=== PATIENT | male | born 1970 | race Caucasian/White ===

== ENCOUNTER 2019-02-07 13:23 | Emergency (ER) | payer OTHER ==
[2019-02-07 13:42] VITALS: BP 135/90; PULSE 79; TEMP 98; BMI 20.1
--- NOTE | 2019-02-07 13:42 | PDOC ---
Rapid Medical Evaluation Chief Complaint: Hematuria Time Seen by Provider: 02/07/19 13:39 Medical Evaluation: Allergies Allergy/AdvReac Type Severity Reaction Status Date / Time Penicillins Allergy Intermediate Verified 06/11/11 08:12 02/07/19 13:39 I have performed a brief in-person evaluation of this patient. The patient presents with a chief complaint of:hematuria Pertinent physical exam findings: onset this afternoon, + HX of Kidney Stone 3 years ago I have ordered the following: UA, Ucx The patient will proceed to the ED for further evaluation. 02/07/19 13:40 Discharge Disposition - Diagnosis Hematuria - Referrals - Patient Instructions - Post Discharge Activity
[2019-02-07 14:34] LABS: HYALINE CASTS 5 /lpf (0-8); URINE APPEARANCE CLEAR; URINE BACTERIA 0.2 /hpf (NEGATIVE); URINE BILIRUBIN 1+ (NEGATIVE); URINE COLOR RED; URINE GLUCOSE (UA) NEGATIVE (NEGATIVE); URINE KETONE NEGATIVE (NEGATIVE); URINE LEUK ESTERASE 1+ (NEGATIVE); URINE NITRITE POSITIVE (NEGATIVE); URINE PROTEIN 2+ (NEGATIVE); URINE RBC 5406 /hpf (0-4); URINE UROBILINOGEN 0.2 mg/dL (0.2-1.0); URINE WBC 14 /hpf (0-5)
--- NOTE | 2019-02-07 14:44 | PDOC ---
History of Present Illness - General Chief Complaint: Hematuria Stated Complaint: BLOOD IN THE URINE Time Seen by Provider: 02/07/19 13:39 History Source: Patient Exam Limitations: Clinical Condition - History of Present Illness Initial Comments: 02/07/19 14:41 Patient with no significant past medical history and half pack a day smoker presented with complaint of blood-tinged urine since this afternoon. Patient reported history of kidney stone and thinks symptom hardy likely be due to a passed kidney stone. Patient reported no pain before or after hematuria. Denies urinary frequency, dysuria, back pains, nausea or vomiting. Denies any other symptoms Is this a multiple visit Asthma Patient?: No Timing/Duration: 4-6 hours Past History - Past Medical History Allergies/Adverse Reactions: Allergies Allergy/AdvReac Type Severity Reaction Status Date / Time Penicillins Allergy Intermediate Verified 02/07/19 13:42 Home Medications: Ambulatory Orders Ciprofloxacin [Cipro (Restricted To Id)] 500 mg PO Q12H 7 Days #14 tablet COPD: No HTN: Yes - Psycho Social/Smoking Cessation Hx Smoking Status: Yes Smoking History: Current every day smoker Years of Tobacco Use: 18 Number of Cigarettes Smoked Daily: 10 Information on smoking cessation initiated: No Hx Alcohol Use: No Drug/Substance Use Hx: No Review of Systems - Review of Systems Able to Perform ROS?: Yes Is the patient limited Lithuanian proficient: No Constitutional: No: Chills, Fever, Malaise HEENTM: No: Symptoms Reported Respiratory: No: Symptoms reported Cardiac (ROS): No: Symptoms Reported ABD/GI: No: Symptoms Reported, Nausea, Vomiting : Yes: Symptoms Reported, See HPI, Hematuria. No: Burning, Dysuria, Discharge , Frequency, Flank Pain, Incontinence, Pain, Urgency, Testicular Mass, Testicular Swelling, Lesions, Testicular Pain Musculoskeletal: No: Symptoms Reported, Back Pain All Other Systems: Reviewed and Negative *Physical Exam - Vital Signs Last Vital Signs Temp Pulse Resp BP Pulse Ox 98.0 F 79 14 135/90 99 02/07/19 13:38 02/07/19 13:38 02/07/19 13:38 02/07/19 13:38 02/07/19 13:38 - Physical Exam General Appearance: Yes: Nourished, Appropriately Dressed. No: Apparent Distress HEENT: positive: Normal ENT Inspection Neck: positive: Supple Respiratory/Chest: positive: Lungs Clear, Normal Breath Sounds. negative: Respiratory Distress, Accessory Muscle Use Cardiovascular: positive: Regular Rhythm, Regular Rate Gastrointestinal/Abdominal: positive: Normal Bowel Sounds, Flat, Soft. negative : Tender, Organomegaly, Pulsatile Mass Male Genitalia: positive: normal genitalia Musculoskeletal: positive: Normal Inspection. negative: CVA Tenderness Extremity: positive: Normal Inspection Integumentary: positive: Normal Color Neurologic: positive: Fully Oriented, Alert, Normal Mood/Affect, Normal Response ED Treatment Course - ADDITIONAL ORDERS Additional order review: Laboratory Results 02/07/19 14:20 Urine Color Red Urine Appearance Clear Urine pH 8.0 Ur Specific [place] 1.025 Urine Protein 2+ H Urine Glucose (UA) Negative Urine Ketones Negative Urine Blood 3+ H Urine Nitrite Positive H Urine Bilirubin 1+ H Urine Urobilinogen 0.2 Ur Leukocyte Esterase 1+ H Urine WBC (Auto) 14 Urine RBC (Auto) 5406 Urine Casts (Auto) 5 U Epithel Cells (Auto) 1.0 Urine Bacteria (Auto) 0.2 - RADIOLOGY Radiology Studies Ordered: Category Date Time Status SPIRAL- RENAL-STONE CT [CT] Stat CT Scan 02/07/19 14:35 Ordered Medical Decision Making - Medical Decision Making 02/07/19 14:42 Patient with no significant past medical history and half pack a day smoker presented with complaint of blood-tinged urine since this afternoon. Patient reported history of kidney stone and thinks symptom hardy likely be due to a passed kidney stone. Patient reported no pain before or after hematuria. Denies urinary frequency, dysuria, back pains, nausea or vomiting. Denies any other symptoms Clinical exam unremarkable with no abdominal tenderness and no CVA tenderness. Patient symptoms likely acute cystitis versus renal stone versus bladder cancer. UA and urine culture lab ordered. Spiral CT ordered to evaluate for renal pathology 02/07/19 16:50 UA shows leukocytosis with positive nitrites and ketones with hematuria. Spiral CT shows small 0.3 cm nonobstructing renal stone on the left otherwise normal exam. Patient symptoms likely caused by cystitis with renal stone. Patient stable for outpatient management on Cipro antibiotics for a week with urology follow-up Discharge - Discharge Information Problems reviewed: Yes Clinical Impression/Diagnosis: Acute cystitis with hematuria, Renal calculi Condition: Stable Disposition: HOME - Admission No - Additional Discharge Information Prescriptions: Ciprofloxacin [Cipro (Restricted To Id)] 500 mg PO Q12H 7 Days #14 tablet - Follow up/Referral Referrals: Kiko Ly MD [Staff Physician] - - Patient Discharge Instructions Patient Printed Discharge Instructions: DI for Kidney Stones, DI for Hematuria Additional Instructions: Your CAT scan shows tiny nonobstructing 0.3 cm renal stone. Urine lab data shows bacteria in the urine which can also contribute to blood in urine. Take prescribed medication as prescribed. Increase fluid intake and void frequently. Follow-up referred urologist or your urologist in the [place] as discussed - Post Discharge Activity
== END 2019-02-07 16:55 | disposition home or self-care (01) ==
LOC: JERFT 13:23
DX: N30.01 Acute cystitis with hematuria (principal); N20.0 Calculus of kidney; Z87.442 Personal history of urinary calculi; I10 Essential (primary) hypertension; F17.210 Nicotine dependence, cigarettes, uncomplicated; Z88.0 Allergy status to penicillin; Z88.1 Allergy status to other antibiotic agents
CPT/HCPCS: 74176-TC; 81003; 87086; 87186; 99281-25

== ENCOUNTER 2019-02-07 19:53 | Inpatient (IN) | payer OTHER ==
[2019-02-07] MEDS ORDERED: KETOROLAC TROMETHAMINE 60 MG/2 ML VIAL IM ONE (20:11)
--- NOTE | 2019-02-07 20:12 | PDOC ---
Rapid Medical Evaluation Chief Complaint: Pain Time Seen by Provider: 02/07/19 20:07 Medical Evaluation: Allergies Allergy/AdvReac Type Severity Reaction Status Date / Time Penicillins Allergy Intermediate Verified 02/07/19 16:54 02/07/19 20:08 I have performed a brief in-person evaluation of this patient. The patient presents with a chief complaint of:was discharged ~ 2 hours ago with Dx Kidney stone., passed kidney stone ~ 1 hour ago, and unable to get pain medications. here with severe flank pain and Nausea Pertinent physical exam findings: patient in wheelchair/ groaning/ diaphoretic I have ordered the following: UA The patient will proceed to the ED for further evaluation. 02/07/19 20:10 Discharge Disposition - Diagnosis Kidney stone on right side - Discharge Dispostion Condition at time of disposition: Stable - Referrals - Patient Instructions - Post Discharge Activity
[2019-02-07 20:14] VITALS: BMI 21.8
[2019-02-07] MEDS ORDERED: KETOROLAC TROMETHAMINE 60 MG/2 ML VIAL ONE (20:19)
[2019-02-07 23:18] LABS: BASO % 0.4 % (0-2.0); EOS % 0.6 % (0-4.5); HEMATOCRIT 44.2 % (35.4-49); HEMOGLOBIN 14.4 GM/dL (11.7-16.9); LYMPH % 12.5 % (8-40); MCH 30.8 pg (25.7-33.7); MCHC 32.6 g/dl (32.0-35.9); MEAN CELL VOLUME 94.5 fl (80-96); MONO % 4.1 % (3.8-10.2); NEUT % 82.4 % (42.8-82.8); PLATELET COUNT 292 K/MM3 (134-434); RBC 4.68 M/mm3 (4.00-5.60); RDW 13.5 % (11.9-15.9); WHITE BLOOD COUNT 12.8 K/mm3 (4.0-10.0)
--- NOTE | 2019-02-07 23:30 | PDOC ---
History of Present Illness - General Chief Complaint: Pain Stated Complaint: ABD PAIN Time Seen by Provider: 02/07/19 20:07 History Source: Patient Exam Limitations: No Limitations - History of Present Illness Initial Comments: 02/07/19 23:17 48M with a PMH from HTN who presents to the ER with L flank pain. The patient was seen in our ER earlier today and was diagnosed with a renal pelvis stone and possible UTI and sent home with antibiotics. He states that at 1800 his pain came back and he couldn't tolerate it. He denies taking ibuprofen or tylenol for the pain. He states that his urine is less bloody now. Denies dysuria, discharge, or testicular pain. Past History - Past Medical History Allergies/Adverse Reactions: Allergies Allergy/AdvReac Type Severity Reaction Status Date / Time Penicillins Allergy Intermediate Verified 02/07/19 16:54 gatifloxacin [From Tequin] Allergy Verified 02/07/19 20:09 Home Medications: Ambulatory Orders Ciprofloxacin [Cipro (Restricted To Id)] 500 mg PO Q12H 7 Days #14 tablet COPD: No HTN: Yes - Psycho Social/Smoking Cessation Hx Smoking Status: Yes Smoking History: Current every day smoker Years of Tobacco Use: 18 Number of Cigarettes Smoked Daily: 10 Information on smoking cessation initiated: No Hx Alcohol Use: No Drug/Substance Use Hx: No Review of Systems - Review of Systems Able to Perform ROS?: Yes Comments:: 02/07/19 23:52 GENERAL/CONSTITUTIONAL: No fever or chills. No weakness. HEAD, EYES, EARS, NOSE AND THROAT: No change in vision. No ear pain or discharge. No sore throat. CARDIOVASCULAR: No chest pain, palpitations, or lightheadedness. RESPIRATORY: No cough, wheezing, shortness of breath, or hemoptysis. GASTROINTESTINAL: No abdominal pain, nausea, vomiting, diarrhea, or constipation. GENITOURINARY: + for hematuria and flank pain. No dysuria, frequency, or change in urination. MUSCULOSKELETAL: No joint or muscle swelling or pain. No neck or back pain. SKIN: No rash or lesions. NEUROLOGIC: No headache, numbness, tingling, focal weakness, loss of consciousness, or change in strength/sensation. Is the patient limited Wolof proficient: No *Physical Exam - Vital Signs Last Vital Signs Temp Pulse Resp BP Pulse Ox 98 F 71 20 138/76 100 02/07/19 20:09 02/07/19 20:09 02/07/19 20:09 02/07/19 20:09 02/07/19 20:09 - Physical Exam Comments: 02/07/19 23:52 GENERAL: Well developed, well nourished. Awake and alert. No acute distress. HEENT: Normocephalic, atraumatic. Hearing grossly normal. Moist mucous membranes. PERRLA, EOMI. No conjunctival pallor. Sclera are non-icteric. NECK: Supple. Full ROM. No JVD. CARDIOVASCULAR: Regular rate and rhythm. No murmurs, rubs, or gallops. PULMONARY: No evidence of respiratory distress. Lungs clear to auscultation bilaterally. No wheezing, rales or rhonchi. ABDOMINAL: Soft. Non-tender. Non-distended. No rebound or guarding. GENITOURINARY: No CVA tenderness bilaterally. MUSCULOSKELETAL: Normal range of motion at all joints. No bony deformities or tenderness. EXTREMITIES: No cyanosis. No clubbing. No edema. No calf tenderness or swelling. SKIN: Warm and dry. Normal capillary refill. No rashes. No jaundice. NEUROLOGICAL: Alert, awake, appropriate. Cranial nerves 2-12 intact. Normal speech. Gait is normal without ataxia. PSYCHIATRIC: Cooperative. Good eye contact. Appropriate mood and affect. ED Treatment Course - LABORATORY CBC & Chemistry Diagram: 02/07/19 23:00 02/07/19 23:00 - Medications Given in the ED: ED Medications Discontinued Medications Generic Name Dose Route Start Last Admin Trade Name Alfonsoq PRN Reason Stop Dose Admin Ketorolac Tromethamine 60 mg 02/07/19 20:11 02/07/19 20:21 Toradol Injection - IM 02/07/19 20:12 60 mg ONCE ONE Administration Medical Decision Making - Medical Decision Making 02/08/19 00:27 48M recently diagnosed with nephrolithiasis and UTI (nitrite +, 1+ LE, w/ few bacteria however). Will admit for concern of septic stone. Giving IV abx. Discharge - Discharge Information Problems reviewed: Yes Clinical Impression/Diagnosis: Kidney stone on right side Condition: Guarded - Admission Yes - Follow up/Referral - Patient Discharge Instructions - Post Discharge Activity
[2019-02-07 23:51] LABS: ALBUMIN 4.1 g/dl (3.4-5.0); BILIRUBIN,TOTAL 0.8 mg/dL (0.2-1); BLOOD UREA NITROGEN 21.5 mg/dL (7-18); CREATININE 1.3 mg/dL (0.55-1.3); POTASSIUM 4.4 mmol/L (3.5-5.1); TOT PROT 7.3 g/dl (6.4-8.2)
--- NOTE | 2019-02-07 23:53 | PDOC ---
Attending Attestation - Resident Resident Name: Allan Schroeder - ED Attending Attestation I have performed the following: I have examined & evaluated the patient, The case was reviewed & discussed with the resident, I agree w/resident's findings & plan - HPI HPI: 02/07/19 23:52 see resident hpi - Physicial Exam PE: 02/07/19 23:52 agree with resident exam - Medical Decision Making 02/07/19 23:52 48-year-old male seen earlier today with diagnosed intrarenal stone and possible UTI now with increasing pain Patient does have a leukocytosis In light of persistent pain, stone on CT scan and pending urine culture he will be admitted to medical service for further management
[2019-02-08] MEDS ORDERED: CEFTRIAXONE 1,000 MG in DEXTROSE 5%-WATER - 50 ML IVPB ONE (00:32)
[2019-02-08] MEDS ORDERED: CEFTRIAXONE 1 GM/50 ML BAG ONE (00:35)
--- NOTE | 2019-02-08 01:35 | PN ---
Teaching Attending Note Name of Resident: Justin Harrell ATTENDING PHYSICIAN STATEMENT I saw and evaluated the patient. I reviewed the resident's note and discussed the case with the resident. I agree with the resident's findings and plan as documented. SUBJECTIVE: Patient is a 48 year old man with PMH of Penicillin allergy, Kidney stone, Tobacco use and HTN who presents to the ER with left flank pain. The patient was seen in our ER earlier today for hematuria and was diagnosed with a renal pelvis stone and possible UTI and sent home with antibiotics (Cipro). He states that at 1800 his pain came back and he couldn't tolerate it. He denies taking ibuprofen or tylenol for the pain. He states that his urine is less bloody now. Takes self-prescribed Flintstones vitamins. Denies dysuria, penile discharge, or testicular pain. Denies urinary frequency, dysuria, back pains, nausea or vomiting. No alcohol or illicit drug use. No recent travel or sick contacts. FH of HTN in parents. OBJECTIVE: Alert Vital Signs Period Temp Pulse Resp BP Sys/[place] Pulse Ox Last 24 Hr 97.9 F-98 F 67-71 15-20 113-138/64-76 97-100 HEENT: No Jaundice, eye redness or discharge, PERRLA, EOMI. Normocephalic, atraumatic. External ears are normal and hearing is grossly intact. No nasal discharge. Neck: Supple, nontender. No palpable adenopathy or thyromegaly. No JVD Chest: Good effort. Clear to auscultation and percussion. Heart: Regular. No S3, rub or murmur Abdomen: Not distended, soft, nontender and no HSM. No rebound or guarding. Normal bowel sounds. Ext: Peripheral pulses intact. No leg edema. Skin: Warm and dry. No petechiae, rash or ecchymosis. Neuro: Alert. Oriented x3. CN 2-12 grossly intact. Sensation grossly intact in all four extremities and DTR are symmetric. Psych: Appropriate mood and affect. Good insight. Home Medications Medication Instructions Recorded Ciprofloxacin [Cipro (Restricted 500 mg PO Q12H 7 Days #14 tablet 02/07/19 To Id)] Fexofenadine HCl [Richa Allergy] 60 mg PO DAILY 02/08/19 Metoprolol Succinate [Toprol Xl] 25 mg PO DAILY 02/08/19 Abnormal Lab Results 02/07/19 02/07/19 23:00 23:00 WBC 12.8 H Absolute Neuts (auto) 10.5 H Anion Gap 5 L BUN 21.5 H Random Glucose 113 H ASSESSMENT AND PLAN: 1. Kidney stone with UTI - Earlier today, spiral CT showed small 0.3 cm nonobstructing renal stone in the left renal pelvis with minimal to mild hydronephrosis. Also urinalysis done earlier today showed hematuria and evidence of UTI. Will treat with IV Cipro pending urine culture, IV NS, Flomax, strain urine and consult Urology. Use tylenol for pain control. EKG shows NSR with no significant ST-T wave changes. Will need outpatient workup to search for stone disease risk factor. Counseled to stop taking Flintstones vitamins. Get HbA1c. Will continue comprehensive care for all of patients comorbid conditions. 2. Hypertension - Restart suitable outpatient antihypertensive drugs when clinically appropriate. Revise regimen to ensure [id number] excellent BP control and community health counselor patient on the injurious effects of uncontrolled hypertension. Nonpharmacologic measures to control hypertension like weight loss , salt restriction and exercise discussed. Importance of adherence to treatment regimen and attainment of normotension emphasized. 3. DVT prophylaxis - SCD 4. Advance directives - Full code
--- NOTE | 2019-02-08 01:45 | HP ---
CHIEF COMPLAINT: abdominal pain PCP: Joni Murray HISTORY OF PRESENT ILLNESS: 48 y/o male PMH HTN and nephrolithiasis c/o abdominal pain. Pain is located in the LLQ, started in the afternoon, pressure character, radiates to the groin, associated symptom of hematuria, and was 8/10. Hematuria initially presented as tea colored urine and reduced in severity over time. Pt's 1st experience with nephrolithiasis was in 2004 and he reports feeling similar symptoms. He came to the ED on the afternoon of 07 Feb 2019, found to have 4x2mm stone in LEFT renal pelvis with min/mild hydronephrosis on CT, and he was d/c on ciprofloxacin 500 mg PO BID, which he did not start. He returned to the ED with abovementioned pain. He was given ketorolac in the ED, which relived his pain. He denies passing the stone in between visits. Pt reports poor diet: low fiber diet, no fruits/veg, sodas/juices often. He also states he consumes PhysicianPortal vitamins, which contains 160 mg Ca. He denies hematuria outside of kidney stone episodes. He is an active smoker. He denies night sweats, fever, chills, and weight loss. He denies NVFD, chills, constipation. He denies sick contacts and recent illness. HTN dx in 2009. He does not mesause his BP at home. He takes metoprolol 25 mg PO QD in the AM. He denies SOB, CP, joint pain, TURK, and vision changes. Recent Travel: [place] September 2018 Family history: Mother and father - HTN PAST MEDICAL HISTORY: HTN, nephrolithiasis PAST SURGICAL HISTORY: Denies Social History: Smoking: Active smoker for 28 years, 1/2 ppd. In contemplative state for cessation. Alcohol: Denies Drugs: Denies Works as a school bus aide. Lives at home with mother and brother. Allergies: Penicillins Allergy (Intermediate, Verified 02/07/19 16:54): swelling , lethargy HOME MEDICATIONS: Medication Instructions Recorded Ciprofloxacin [Cipro (Restricted 500 mg PO Q12H 7 Days #14 tablet 02/07/19 To Id)] Fexofenadine HCl [Richa Allergy] 60 mg PO DAILY 02/08/19 Metoprolol Succinate [Toprol Xl] 25 mg PO DAILY 02/08/19 REVIEW OF SYSTEMS CONSTITUTIONAL: Absent: fever, chills, diaphoresis, generalized weakness, malaise, loss of appetite, weight change HEENT: Absent: rhinorrhea, nasal congestion, throat pain, throat swelling, difficulty swallowing, mouth swelling, ear pain, eye pain, visual changes CARDIOVASCULAR: Absent: chest pain, syncope, palpitations, irregular heart rate, lightheadedness , peripheral edema RESPIRATORY: Absent: cough, shortness of breath, dyspnea with exertion, orthopnea, wheezing, stridor, hemoptysis GASTROINTESTINAL: Absent: abdominal pain, abdominal distension, nausea, vomiting, diarrhea, constipation, melena, hematochezia GENITOURINARY: Absent: dysuria, frequency, urgency, hesitancy, hematuria, flank pain, genital pain MUSCULOSKELETAL: Absent: myalgia, arthralgia, joint swelling, back pain, neck pain SKIN: Absent: rash, itching, pallor HEMATOLOGIC/IMMUNOLOGIC: Absent: easy bleeding, easy bruising, lymphadenopathy, frequent infections ENDOCRINE: Absent: unexplained weight gain, unexplained weight loss, heat intolerance, cold intolerance NEUROLOGIC: Absent: headache, focal weakness or paresthesias, dizziness, unsteady gait, seizure, mental status changes, bladder or bowel incontinence PSYCHIATRIC: Absent: anxiety, depression, suicidal or homicidal ideation, hallucinations. PHYSICAL EXAMINATION Vital Signs - 24 hr 02/07/19 02/08/19 20:09 00:40 Temperature 98 F 97.9 F Pulse Rate 71 Pulse Rate [ 67 Right Radial] Respiratory 20 15 Rate Blood Pressure 138/76 Blood Pressure 113/64 [Left Arm] O2 Sat by Pulse 100 97 Oximetry (%) GENERAL: AOx3, in no acute distress. HEAD: NCAT EYES: IVORY, EOMI, conjunctiva clear. ENT: Ears normal, nares patent, oropharynx clear without exudates. Moist mucous membranes. NECK: Normal range of motion, supple without lymphadenopathy, JVD, or masses. LUNGS: CTAB. LEFT upper lobe wheezes. No accessory muscle use. HEART: RRR s1 s2 ABDOMEN: Soft, BS present in all 4 quadrants, non-distended, no JVD, MUSCULOSKELETAL: No bony deformities or tenderness. No CVA tenderness. UPPER EXTREMITIES: 2+ pulses, warm, well-perfused. No cyanosis. No clubbing. No peripheral edema. LOWER EXTREMITIES: 2+ pulses, warm, well-perfused. No calf tenderness. No peripheral edema. NEUROLOGICAL: No focal deficits. Cranial nerves II-XII intact. Normal speech. Gait not appreciated. PSYCHIATRIC: Cooperative. Good eye contact. Appropriate mood and affect. SKIN: Warm, dry, normal turgor, no rashes or lesions noted, normal capillary refill. Laboratory Results - last 24 hr 02/07/19 02/07/19 23:00 23:00 WBC 12.8 H RBC 4.68 Hgb 14.4 Hct 44.2 MCV 94.5 MCH 30.8 MCHC 32.6 RDW 13.5 Plt Count 292 D MPV 9.0 Absolute Neuts (auto) 10.5 H Neutrophils % 82.4 Lymphocytes % 12.5 D Monocytes % 4.1 Eosinophils % 0.6 Basophils % 0.4 Nucleated RBC % 0 Sodium 138 Potassium 4.4 Chloride 104 Carbon Dioxide 29 Anion Gap 5 L BUN 21.5 H Creatinine 1.3 Est GFR (CKD-EPI)AfAm 75.84 Est GFR (CKD-EPI)NonAf 65.43 Random Glucose 113 H Calcium 10.0 Total Bilirubin 0.8 AST 21 ALT 17 Alkaline Phosphatase 95 Total Protein 7.3 Albumin 4.1 ASSESSMENT/PLAN: 48 y/o male PMH HTN and nephrolithiasis c/o abdominal pain. CT finding of 4x2mm calculus in LEFT renal pelvis with min/mild hydronephrosis. Complete pain relief with ketorolac. Leukocytosis. # Nephrolithiasis - Strain urine - Ciprofloxacin 400 mg IV - IVF - Tamsulosin 0.4 mg PO QD - Work-up etiology: uric acid, PTH, urine ca, electrolytes, oxylate # Leukocytosis - WBC 12.8 - CXR - UA - Urine culture - Ciprofloxacin 400 mg IV #F/E/N - NS - Cont. to monitor - Low sodium diet # DVT prophylaxis - Heparin SQ # Disposition - Admit to med/surg Justin Harrell MD Visit type - Emergency Visit Emergency Visit: Yes ED Registration Date: 02/08/19 Care time: The patient presented to the Emergency Department on the above date and was hospitalized for further evaluation of their emergent condition. - New Patient This patient is new to me today: Yes Date on this admission: 02/08/19 - Critical Care Critical Care patient: No ATTENDING PHYSICIAN STATEMENT I saw and evaluated the patient. I reviewed the resident's note and discussed the case with the resident. I agree with the resident's findings and plan as documented. SUBJECTIVE: OBJECTIVE: ASSESSMENT AND PLAN:
[2019-02-08] MEDS ORDERED: ACETAMINOPHEN 325 MG TABLET (FP) PO PRN (03:41)
[2019-02-08] MEDS ORDERED: SODIUM CHLORIDE 1,000 ML IV SCH (03:45)
[2019-02-08 05:41] VITALS: PULSE 64
[2019-02-08] MEDS ORDERED: HEPARIN NA (PORCINE) 5,000 UNITS/ML 1ML VIAL SQ SCH (06:00)
[2019-02-08] MEDS ORDERED: HEPARIN NA (PORCINE) 5,000 UNITS/ML 1ML VIAL ONE (06:30)
[2019-02-08] MEDS ORDERED: ACETAMINOPHEN 325 MG TABLET (FP) ONE ×2 (06:35→12:02)
[2019-02-08 07:21] LABS: HEMATOCRIT 41.7 % (35.4-49); HEMOGLOBIN 14.1 GM/dL (11.7-16.9); MCH 31.7 pg (25.7-33.7); MCHC 33.7 g/dl (32.0-35.9); MEAN PLT VOLUME 9.2 fl (7.5-11.1); PLATELET COUNT 263 K/MM3 (134-434); RBC 4.44 M/mm3 (4.00-5.60); RDW 13.7 % (11.9-15.9); WHITE BLOOD COUNT 9.4 K/mm3 (4.0-10.0)
[2019-02-08 07:50] LABS: BLOOD UREA NITROGEN 23.9 mg/dL (7-18); CALCIUM 9.3 mg/dL (8.5-10.1); CREATININE 1.1 mg/dL (0.55-1.3); MAGNESIUM 2.4 mg/dL (1.8-2.4); PHOSPHOROUS 4.3 mg/dL (2.5-4.9); POTASSIUM 4.2 mmol/L (3.5-5.1); URIC ACID 5.7 mg/dL (2.6-7.2)
[2019-02-08] MEDS ORDERED: TAMSULOSIN HCL 0.4 MG CAP PO SCH (08:30)
--- NOTE | 2019-02-08 10:49 | EKG ---
Test Reason : Blood Pressure : / mmHG Vent. Rate : 063 BPM Atrial Rate : 063 BPM P-R Int : 132 ms QRS Dur : 070 ms QT Int : 420 ms P-R-T Axes : 025 040 035 degrees QTc Int : 429 ms POOR DATA QUALITY, INTERPRETATION MAY BE ADVERSELY AFFECTED NORMAL SINUS RHYTHM NORMAL ECG WHEN COMPARED WITH ECG OF 11-JUN-2011 08:34, NO SIGNIFICANT CHANGE WAS FOUND Confirmed by HARRY LEIGH, PRAVEENA ([id number]) on 02/08/2019 10:48:58 AM Referred By: Confirmed By:PRAVEENA MCDONALD MD
--- NOTE | 2019-02-08 11:53 | DS ---
Physical Exam: SUBJECTIVE: Patient seen and examined at the bedside. Stated that he did not have any pain at the time of interview and was well improved with toradol and tylenol. Endorses hematuria. Denies cp, sob, abd pain, n/v/c/d, fever, chills, numbness, tingling, dysuria, incomplete emptying, urinary incontinence. OBJECTIVE: Vital Signs Period Temp Pulse Resp BP Sys/Jefferson Pulse Ox Last 24 Hr 97.9 F-98.3 F 64-71 15-20 113-138/64-76 96-100 PHYSICAL EXAM GENERAL: AOx3, in no acute distress. HEAD: Normocephalic, autramatic. EYES: IVORY, EOMI, conjunctiva clear. ENT: Ears normal, nares patent, oropharynx clear without exudates. Moist mucous membranes. NECK: Normal range of motion, supple without lymphadenopathy, JVD, or masses. LUNGS: Clear to auscultation bilaterally, no wheezes, coarse breath sounds, crackles. No accessory muscle use. HEART: Regular rate and rhythm no murmurs or rubs appreciated. ABDOMEN: Soft, BS present in all 4 quadrants, non-distended. MUSCULOSKELETAL: No bony deformities or tenderness. Positive Jose's punch. UPPER EXTREMITIES: 2+ pulses, warm, well-perfused. No cyanosis. No clubbing. No peripheral edema. LOWER EXTREMITIES: 2+ pulses, warm, well-perfused. No calf tenderness. No peripheral edema. NEUROLOGICAL: Cranial nerves II-XII intact. No focal deficits. PSYCHIATRIC: Cooperative. Good eye contact. Appropriate mood and affect. SKIN: Warm, dry, normal turgor, no rashes or lesions noted, normal capillary refill. LABS Laboratory Results - last 24 hr 02/07/19 02/07/19 02/08/19 23:00 23:00 05:52 WBC 12.8 H 9.4 RBC 4.68 4.44 Hgb 14.4 14.1 Hct 44.2 41.7 MCV 94.5 94.0 MCH 30.8 31.7 MCHC 32.6 33.7 RDW 13.5 13.7 Plt Count 292 D 263 MPV 9.0 9.2 Absolute Neuts (auto) 10.5 H Neutrophils % 82.4 Lymphocytes % 12.5 D Monocytes % 4.1 Eosinophils % 0.6 Basophils % 0.4 Nucleated RBC % 0 Sodium 138 Potassium 4.4 Chloride 104 Carbon Dioxide 29 Anion Gap 5 L BUN 21.5 H Creatinine 1.3 Est GFR (CKD-EPI)AfAm 75.84 Est GFR (CKD-EPI)NonAf 65.43 Random Glucose 113 H Uric Acid Calcium 10.0 Phosphorus Magnesium Total Bilirubin 0.8 AST 21 ALT 17 Alkaline Phosphatase 95 Total Protein 7.3 Albumin 4.1 02/08/19 05:52 WBC RBC Hgb Hct MCV MCH MCHC RDW Plt Count MPV Absolute Neuts (auto) Neutrophils % Lymphocytes % Monocytes % Eosinophils % Basophils % Nucleated RBC % Sodium 140 Potassium 4.2 Chloride 107 Carbon Dioxide 27 Anion Gap 6 L BUN 23.9 H Creatinine 1.1 Est GFR (CKD-EPI)AfAm 92.81 Est GFR (CKD-EPI)NonAf 80.08 Random Glucose 93 Uric Acid 5.7 Calcium 9.3 Phosphorus 4.3 Magnesium 2.4 Total Bilirubin AST ALT Alkaline Phosphatase Total Protein Albumin HOSPITAL COURSE: Tirso Altman is a 48 year old male with a past medical history of HTN and nephrolithiasis (last in 2004) was admitted for pain secondary to kidney stone on the L side. CT of abdomen and pelvis showed 4x2mm stone in LEFT renal pelvis with min/mild hydronephrosis on CT. Patient was given toradol for pain and continued on tylenol. Was given Levofloxacin for a positive UA. Urology (Dr. Wood) was consulted and recommended that due to size of the stone patient can be followed up outpatient and recommended to keep the patient on tamsulosin and levofloxacin. Appointment was made for the patient to follow up with Dr. Wood outpatient within 1 week and patient was advised to adequately hydrate, strain urine, avoid high calcium foods. Prescribed 5 days of levofloxacin and tamsulosin daily. Patient advised to follow up with his primary care physician within 1 week. Patient was spoken to about the plan, was in agreement, and reiterated the plan. Patient was discharged in stable condition. Date of Admission:02/08/19 Date of Discharge: 02/08/19 Minutes to complete discharge: 35 Discharge Summary Problems reviewed: Yes Reason For Visit: ACUTE CYSTITIS WITH HEMATURIA,CALCULUS OF KIDNEY Current Active Problems Kidney stone on left side (Chronic) Condition: Improved - Instructions Diet, Activity, Other Instructions: You were admitted for pain because of a kidney stone. You previously had a CT scan which showed a 4mm x 2mm kidney stone on your left side. You were given Flomax and intravenous fluids to help pass the stone. The urologist (urinary tract and kidney doctor) was consulted and he stated that you may follow up in the outpatient clinic for your kidney stone. MEDICATIONS STOP taking ciprofloxacin. START taking Flomax 0.4mg once daily for 14 days and follow up with the urologist, Dr. Nestor Wood. START taking Levofloxacin 500mg once daily for 5 days. If you have any negative side effects such as trouble breathing, hives, itching, hallucinations, please STOP Taking the medication and see your primary care doctor. Take over the counter Tylenol for your pain. You may take up to 650mg (2 Regular Strength tablets), every 6 hours as needed. Please continue to take all of your home medications as prescribed. REFERRALS Please follow up with your primary care provider, Dr. Joni Murray, within 1 week of discharge. Please follow up with Dr. Nestor Wood, within 1 week of discharge. You have an appointment on February 14 at 11:00AM located at [address] [place] [address], [address] [facility], [place] [id number]. If you need to reach the office you may call . SPECIAL INSTRUCTIONS Please strain all of your urine in the attempt to locate the stone. Please consume 6-8 glasses of water daily and remain adequately hydrated in order to best pass the kidney stone. After passing the kidney stone, please continue to remain well hydrated. Avoid eating foods with too much calcium and avoid consuming the Flintstones vitamins as they contain a large amount of calcium. If you have any further symptoms of uncontrollable back pain, inability to move , fevers, chills, inability to eat, nausea, vomiting, chest pain, shortness of breath, or any other general feelings of unwellness, please call [phone] or go to you nearest emergency room. Referrals: Joni Murray [Other] - 1 Week Nestor Wood MD [Staff Physician] - 02/10/19 Disposition: HOME - Home Medications Comprehensive Discharge Medication List: Ambulatory Orders Fexofenadine HCl [Richa Allergy] 60 mg PO DAILY 02/08/19 Levofloxacin [Levaquin] 500 mg PO DAILY #5 tablet 02/08/19 Metoprolol Succinate [Toprol Xl] 25 mg PO DAILY 02/08/19 Tamsulosin HCl [Flomax -] 0.4 mg PO DAILY@0830 #14 cap.er.24h 02/08/19 Problem List - Problems (1) Kidney stone on left side Code(s): N20.0 - CALCULUS OF KIDNEY (2) Renal calculi Code(s): N20.0 - CALCULUS OF KIDNEY This patient is new to me today: Yes Date on this admission: 02/08/19 Emergency Visit: Yes ED Registration Date: 02/08/19 Care time: The patient presented to the Emergency Department on the above date and was hospitalized for further evaluation of their emergent condition. Critical Care patient: No - Discharge Referral Referred to [facility] No
[2019-02-08 15:16] VITALS: BP 134/84; TEMP 97.9
--- NOTE | 2019-02-08 17:59 | PN ---
Teaching Attending Note Name of Resident: Kiko Wright ATTENDING PHYSICIAN STATEMENT I saw and evaluated the patient. I reviewed the resident's note and discussed the case with the resident. I agree with the resident's findings and plan as documented. SUBJECTIVE: Feeling better, L flank pain resolved. No fever/chills. no nausea/ vomiting. urine clear - no further hematuria. OBJECTIVE: Afebrile, Hemodynamically stable. Last Vital Signs Temp Pulse Resp BP Pulse Ox 97.9 F 64 14 134/84 99 02/08/19 12:00 02/08/19 12:00 02/08/19 12:00 02/08/19 12:00 02/08/19 12:00 HEENT - Atraumatic, Normocephalic. Heart - S1, S2, RRR Lungs - clear to auscultation Abdomen - soft, non-tender. Bowel Sounds normal. Extremities - no edema, no calf tenderness. Neuro - AAO x 3. Tone/Power normal all extremities. Laboratory Results - last 24 hr 02/07/19 02/07/19 02/08/19 23:00 23:00 05:52 WBC 12.8 H 9.4 RBC 4.68 4.44 Hgb 14.4 14.1 Hct 44.2 41.7 MCV 94.5 94.0 MCH 30.8 31.7 MCHC 32.6 33.7 RDW 13.5 13.7 Plt Count 292 D 263 MPV 9.0 9.2 Absolute Neuts (auto) 10.5 H Neutrophils % 82.4 Lymphocytes % 12.5 D Monocytes % 4.1 Eosinophils % 0.6 Basophils % 0.4 Nucleated RBC % 0 Sodium 138 Potassium 4.4 Chloride 104 Carbon Dioxide 29 Anion Gap 5 L BUN 21.5 H Creatinine 1.3 Est GFR (CKD-EPI)AfAm 75.84 Est GFR (CKD-EPI)NonAf 65.43 Random Glucose 113 H Uric Acid Calcium 10.0 Phosphorus Magnesium Total Bilirubin 0.8 AST 21 ALT 17 Alkaline Phosphatase 95 Total Protein 7.3 Albumin 4.1 02/08/19 05:52 WBC RBC Hgb Hct MCV MCH MCHC RDW Plt Count MPV Absolute Neuts (auto) Neutrophils % Lymphocytes % Monocytes % Eosinophils % Basophils % Nucleated RBC % Sodium 140 Potassium 4.2 Chloride 107 Carbon Dioxide 27 Anion Gap 6 L BUN 23.9 H Creatinine 1.1 Est GFR (CKD-EPI)AfAm 92.81 Est GFR (CKD-EPI)NonAf 80.08 Random Glucose 93 Uric Acid 5.7 Calcium 9.3 Phosphorus 4.3 Magnesium 2.4 Total Bilirubin AST ALT Alkaline Phosphatase Total Protein Albumin Discharge Medications Medication Instructions Recorded Fexofenadine HCl [Richa Allergy] 60 mg PO DAILY 02/08/19 Levofloxacin [Levaquin] 500 mg PO DAILY #5 tablet 02/08/19 Metoprolol Succinate [Toprol Xl] 25 mg PO DAILY 02/08/19 Tamsulosin HCl [Flomax -] 0.4 mg PO DAILY@0830 #14 cap.er.24h 02/08/19 ASSESSMENT AND PLAN: 48 year old male with Nephrolithiasis, tobacco use,, HTN, presents with L flank pain and hematuria. CT A/P showed0.4cm x 0.2cm non-obstructing stone in L renal pelvis with mild hydronephrosis. No fever/chills/nausea/vomiting. 1. UTI sec to Nephrolithiasis Hydrated overnight, symptoms resolved. Urine Cx pending Started on Levofloxacin and Tamsulosin Discussed with Dr. Paulson (Urology) - no intervention indicated currently - for Abx, Tamsulosin and follow up with him in clinic on 02/14/19. 2. HTN - continue Metoprolol. Dispo - Medicaly stable for discharge with Urology follow up arranged.
== END 2019-02-08 12:23 | disposition home or self-care (01) | DRG 690 ==
LOC: JER 19:53 → JERBED 02-08 00:28
PROVIDERS: ADMIT Internal Medicine
DX: N13.6 Pyonephrosis (principal); I10 Essential (primary) hypertension; F17.210 Nicotine dependence, cigarettes, uncomplicated; D72.829 Elevated white blood cell count, unspecified; Z88.0 Allergy status to penicillin
CPT/HCPCS: 36415; 71045-TC-FY; 80048; 80053; 82340; 83735; 83970; 84100; 84105; 84550; 85025; 85027; 93005; 93010; 99284-25; J1644; J7030

== ENCOUNTER 2020-05-22 07:15 | Emergency (ER) | payer OTHER ==
[2020-05-22 07:33] VITALS: BP 133/79; PULSE 87; TEMP 97.8; BMI 23.7
== END 2020-05-22 08:58 | disposition home or self-care (01) ==
LOC: JER 07:15
DX: R50.9 Fever, unspecified (principal); M79.10 Myalgia, unspecified site; Z20.822 Contact with and (suspected) exposure to COVID-19
CPT/HCPCS: 71046-TC-FY; 99284-25; C9803; U0003

== ENCOUNTER 2024-01-19 06:59 | Emergency (ER) | payer OTHER ==
[2024-01-19 07:09] VITALS: RESP 18; BMI 20.5
[2024-01-19] MEDS ORDERED: ONDANSETRON 4 MG/2 ML VIAL ONE (07:59)
[2024-01-19] MEDS ORDERED: ACETAMINOPHEN INJECTION 100 ML ONE (07:59)
[2024-01-19] MEDS: ACETAMINOPHEN 1000 MG/100 ML BAG IVPB ONE (08:10)
[2024-01-19] MEDS: SODIUM CHLORIDE 1,000 ML IV STA (08:10)
[2024-01-19] MEDS: ONDANSETRON 4 MG/2 ML VIAL IVPUSH ONE (08:11)
[2024-01-19 08:37] LABS: POTASSIUM 4.1 mmol/L (3.5-5.1)
[2024-01-19 08:39] LABS: CALCIUM 9.1 mg/dL (8.5-10.1)
[2024-01-19 08:40] LABS: ALBUMIN 3.8 g/dl (3.4-5.0); BLOOD UREA NITROGEN 13.6 mg/dL (7-18)
[2024-01-19 08:43] LABS: CREATININE 1.1 mg/dL (0.55-1.3)
[2024-01-19 08:44] LABS: EOS % 0.1 % (0-4.5); HEMATOCRIT 39.8 % (35.4-49); HEMOGLOBIN 13.8 GM/dL (11.7-16.9); MCH 31.9 pg (25.7-33.7); MCHC 34.7 g/dl (32.0-35.9); MEAN CELL VOLUME 91.8 fl (80-96); MEAN PLT VOLUME 8.9 fl (7.5-11.1); MONO % 7.2 % (3.8-10.2); NEUT % 79.7 % (42.8-82.8); PLATELET COUNT 230 10^3/uL (134-434); RBC 4.33 M/mm3 (4.00-5.60); RDW 13.3 % (11.9-15.9); WHITE BLOOD COUNT 9.5 K/mm3 (4.0-10.0)
[2024-01-19 08:45] LABS: BILIRUBIN,TOTAL 0.4 mg/dL (0.2-1)
[2024-01-19 09:33] VITALS: BP 114/75; PULSE 88; TEMP 99.3
[2024-01-19 12:32] LABS: HIV INTERPRETATION NEGATIVE (NEGATIVE)
== END 2024-01-19 10:22 | disposition home or self-care (01) ==
LOC: JER 06:59
PROC: 3E033NZ Introduction of Analgesics, Hypnotics, Sedatives into Peripheral Vein, Percutaneous Approach (ICD-10-PCS; principal; 2024-01-19)
PROC: 3E033GC Introduction of Other Therapeutic Substance into Peripheral Vein, Percutaneous Approach (ICD-10-PCS; 2024-01-19)
PROC: 3E0337Z Introduction of Electrolytic and Water Balance Substance into Peripheral Vein, Percutaneous Approach (ICD-10-PCS; 2024-01-19)
DX: R50.9 Fever, unspecified (principal); B34.9 Viral infection, unspecified; M79.10 Myalgia, unspecified site; J32.9 Chronic sinusitis, unspecified; Z20.822 Contact with and (suspected) exposure to COVID-19
CPT/HCPCS: 0241U-QW; 36415; 80053; 84439; 84443; 85025; 86803; 87389; 93005; 93010; 99284-25; J0131